=== PATIENT | male | born 1985 | race Caucasian/White ===

== ENCOUNTER 2016-08-02 20:54 | Emergency (ER) | payer BC, OTHER ==
[~2016-08-02] VITALS: Ht 177.8 cm; Wt 66.0 kg
[~2016-08-02 20:54] MED LIST: LORT7.5T3 PO
[2016-08-02 20:56] VITALS: BP 140/80; PULSE 60; RESP 16; TEMP 97.9; O2SAT 98
[2016-08-02] MEDS ORDERED: CEPHALEXIN MONOHYDRATE 500 MG CAP PO ONE (21:15)
[2016-08-02] MEDS ORDERED: TETANUS/DIPHTHERIA TOXOID ADULT 0.5 ML VIAL IM ONE (21:15)
[2016-08-02] MEDS ORDERED: CEPH-460 PO (21:19)
--- NOTE | 2016-08-02 21:19 | PD ---
HPI Chief Complaint: Skin Problem Time Seen by Provider: 21:15 Travel History International Travel<30 days: No Contact w/Intl Traveler<30days: No Traveled to known affect area: No History of Present Illness HPI 31-year-old white male presents to emergency department with complains of a possible infection to his right lower leg. He states that on Wednesday he noticed a small pimple on the medial aspect of his calf. It has opened up and now has drained. The area has become increasingly red, tender. He has some surrounding pruritus. He denies any fever chills. PFSH Past Medical History Narrative Medical ACL tear Tetanus Vaccination: > 5 Years Past Surgical History Narrative Surgical ACL reconstruction Social History Alcohol Use: Yes (roughly 2 to 3 times per week) Tobacco Use: No Allergies-Medications (Allergen,Severity, Reaction): Coded Allergies: Sulfa (Verified Allergy, Unknown, 08/02/16) Reported Meds & Prescriptions Reported Meds & Active Scripts Active Lortab 7.5/500 (Acetaminophen/Hydrocodone Bitart) Tab 1 Tab PO Q6HPRN FOR PAIN Review of Systems Except as stated in HPI: all other systems reviewed are Neg Physical Exam Narrative GENERAL: This is a well-nourished, well-developed patient, in no apparent distress. SKIN: Patient has a 1.5 x 1.5 cm area of erythema. There is also localizing tenderness and scabbing. No fluctuance or pointing. Warm and dry. HEAD: Atraumatic. Normocephalic. EYES: PERRL, EOMI, no discharge or injection. No scleral icterus. EARS: Clear NOSE: Nasal turbinates appear normal. THROAT: Mucosa pink and moist. Airway patent. NECK: Trachea midline. supple, moves head freely. LUNGS: Clear to auscultation. CV: Regular in rhythm. ABDOMEN: Soft nontender. EXT: No clubbing cyanosis or edema. Data Data Last Documented VS Vital Signs Date Time Temp Pulse Resp B/P Pulse Ox O2 Delivery O2 Flow Rate FiO2 08/02/16 20:56 97.9 60 16 140/80 98 MDM Medical Decision Making Medical Screen Exam Complete: Yes Emergency Medical Condition: Yes Medical Record Reviewed: Yes Differential Diagnosis MDM: High Differential diagnoses: Abscess, folliculitis, cellulitis, lymphangitis, abrasion, contact dermatitis Narrative Course This is folliculitis Patient is given 1 g of Keflex by mouth and a tetanus immunization. Diagnosis Primary Impression: right calf folliculitis Patient Instructions: Narcotic given in the ED, General Instructions Additional Instructions: Rest. Elevation. keep clean and dry. Warm compresses. Daily wound care with soap, water and Neosporin. Three Advil every 6 hours. Keflex Follow-up with a primary care doctor in one week. Return to the ER for any problems. Med/Other Pt SpecificInfo: Prescription(s) given Disposition: 01 DISCHARGE HOME Condition: Stable Mian Bates Aug 02, 2016 21:19
== END 2016-08-02 21:50 | disposition home or self-care (01) ==
LOC: NEPB 20:54
DX: L73.8 Other specified follicular disorders (principal); Z23 Encounter for immunization; Z87.39 Personal history of other diseases of the musculoskeletal system and connective tissue
CPT/HCPCS: 90471; 90714